=== PATIENT | female | born 1975 | race Two or more races ===

== ENCOUNTER 2017-08-16 15:50 | Observation (INO) | payer MEDICAID ==
[2017-08-16] MEDS ORDERED: TERBUTALINE SULFATE 1 MG/ML 1ML VIAL SC ONE (16:30)
[2017-08-16 16:47] LABS: Basophils # (auto) 0 uL; Basophils % (auto) 0.4 % (0.0-2.0); Eosinophils # (auto) 0.1 uL; Eosinophils % (auto) 1.2 % (0.0-7.0); Hematocrit 36.5 % (36.0-46.0); Hemoglobin 12.2 g/dL (12.2-16.2); Mean Corpuscular Hemoglobin 29.8 pg (28.0-32.0); Mean Corpuscular Hgb Conc. 33.5 g/dL (32.0-36.0); Mean Corpuscular Volume 88.8 fL (80.0-100.0); Mean Platelet Volume 8.9 fL (6.9-10.8); Monocytes # (auto) 0.6 uL; Monocytes % (auto) 5.3 % (0.0-12.0); Neutrophils # (auto) 8.4 uL; Neutrophils % (auto) 75.1 % (37.0-80.0); Platelet Count (auto) 238 10^3/uL (140-450); Red Cell Distribution Width 13.8 % (11.8-14.3); White Blood Cell 11.2 10^3/uL (4.4-10.8)
[2017-08-16 17:08] LABS: Albumin 2.7 g/dL (3.4-5.0); BUN/Creatinine Ratio 23.1; Bilirubin, Total 0.2 mg/dL (0.2-1.0); Calcium 8.5 mg/dL (8.5-10.1); Potassium 3.5 mmol/L (3.5-5.1); Total Protein 6.9 g/dL (6.4-8.2); Uric Acid 2.3 mg/dL (2.6-6.0)
[2017-08-16] MEDS ORDERED: TERBUTALINE SULFATE 1 MG/ML 1ML VIAL SC SCH (17:15)
== END 2017-08-16 20:10 | disposition home or self-care (01) | DRG 566 ==
LOC: LDRP 15:50
PROVIDERS: ADMIT Obstetrics & Gynecology; ATTEND Obstetrics & Gynecology
DX: O26.893 Other specified pregnancy related conditions, third trimester (principal); Z3A.30 30 weeks gestation of pregnancy
CPT/HCPCS: 36415; 80053; 84550; 85025; 96372; G0378; J3105

== ENCOUNTER 2017-09-10 07:30 | Observation (INO) | payer MEDICAID ==
[~2017-09-10] VITALS: Ht 152.4 cm; Wt 78.9 kg
[2017-09-10] MEDS ORDERED: PREN-96 PO (08:00)
[2017-09-10] MEDS ORDERED: TERBUTALINE SULFATE 1 MG/ML 1ML VIAL SC SCH (08:30)
[2017-09-10] MEDS ORDERED: TERBUTALINE SULFATE 1 MG/ML 1ML VIAL SC ONE (08:34)
[2017-09-10 09:32] LABS: Basophils # (auto) 0 uL; Basophils % (auto) 0.4 % (0.0-2.0); Eosinophils # (auto) 0.1 uL; Eosinophils % (auto) 1.1 % (0.0-7.0); Hematocrit 39.1 % (36.0-46.0); Hemoglobin 13.1 g/dL (12.2-16.2); Lymphocytes # (auto) 1.8 uL; Lymphocytes % (auto) 16.1 % (10.0-50.0); Mean Corpuscular Hemoglobin 29.9 pg (28.0-32.0); Mean Corpuscular Hgb Conc. 33.4 g/dL (32.0-36.0); Mean Corpuscular Volume 89.5 fL (80.0-100.0); Mean Platelet Volume 9.2 fL (6.9-10.8); Monocytes # (auto) 0.4 uL; Monocytes % (auto) 3.8 % (0.0-12.0); Neutrophils % (auto) 78.6 % (37.0-80.0); Platelet Count (auto) 208 10^3/uL (140-450); Red Cell Distribution Width 14.5 % (11.8-14.3); White Blood Cell 11.4 10^3/uL (4.4-10.8)
[2017-09-10 09:43] LABS: Albumin 2.9 g/dL (3.4-5.0); BUN/Creatinine Ratio 14.6; Potassium 3.3 mmol/L (3.5-5.1)
[2017-09-10 09:46] LABS: Bilirubin, Total 0.3 mg/dL (0.2-1.0); Total Protein 7.4 g/dL (6.4-8.2)
== END 2017-09-10 10:10 | disposition home or self-care (01) | DRG 566 ==
LOC: LDRP 07:30
PROVIDERS: ADMIT Obstetrics & Gynecology; ATTEND Obstetrics & Gynecology
DX: O26.893 Other specified pregnancy related conditions, third trimester (principal); L29.9 Pruritus, unspecified; Z3A.34 34 weeks gestation of pregnancy
CPT/HCPCS: 36415; 59025; 80053; 81002; 85025; 86592; 96372; G0378; J3105

== ENCOUNTER 2017-10-06 12:09 | Inpatient (IN) | payer MEDICAID ==
[~2017-10-06] VITALS: Ht 152.4 cm; Wt 81.6 kg
[~2017-10-06 12:09] MED LIST: PREN-96 PO
[2017-10-07] MEDS ORDERED: TERBUTALINE SULFATE 1 MG/ML 1ML VIAL SC ONE (00:42)
[2017-10-07] MEDS: LACTATED RINGER'S 1,000 ML IV SCH ×3 (00:48→16:48)
[2017-10-07] MEDS ORDERED: CLINDAMYCIN 900MG IV 0 ML IV ONE (01:18)
[2017-10-07] MEDS ORDERED: MORPHINE SULF(PF) 0.5MG/ML 10ML VIAL ONE (01:29)
[2017-10-07] MEDS ORDERED: ePHEDrine SULFATE 50 MG/ML AMP ONE (01:30)
[2017-10-07] MEDS ORDERED: CLINDAMYCIN 900MG IV 50 ML IV SCH (01:30)
[2017-10-07] MEDS ORDERED: PHENYLEPHRINE HCL 10 MG/ML VL ONE (01:30)
[2017-10-07 01:42] LABS: Basophils # (auto) 0 uL; Basophils % (auto) 0.4 % (0.0-2.0); Eosinophils # (auto) 0.1 uL; Eosinophils % (auto) 1.2 % (0.0-7.0); Hematocrit 37.4 % (36.0-46.0); Hemoglobin 12.2 g/dL (12.2-16.2); Lymphocytes # (auto) 2.3 uL; Lymphocytes % (auto) 19.3 % (10.0-50.0); Mean Corpuscular Hemoglobin 29.1 pg (28.0-32.0); Mean Corpuscular Hgb Conc. 32.7 g/dL (32.0-36.0); Mean Corpuscular Volume 88.9 fL (80.0-100.0); Monocytes # (auto) 0.8 uL; Monocytes % (auto) 6.4 % (0.0-12.0); Neutrophils # (auto) 8.8 uL; Neutrophils % (auto) 72.7 % (37.0-80.0); Nucleated Red Blood Cells % 0.1 %; Platelet Count (auto) 206 10^3/uL (140-450); Red Blood Cells 4.21 10^6/uL (4.0-5.20); Red Cell Distribution Width 14.6 % (11.8-14.3); White Blood Cell 12.1 10^3/uL (4.4-10.8)
[2017-10-07 01:49] LABS: Albumin 2.6 g/dL (3.4-5.0); Calcium 8.9 mg/dL (8.5-10.1); Potassium 3.2 mmol/L (3.5-5.1)
[2017-10-07 01:51] LABS: Urine Bacteria NONE SEEN /hpf (None Seen); Urine Blood 2+ /uL (Negative); Urine Specific Gravity 1.004 (1.001-1.035); Urine WBC <1 /hpf (0 - 5)
[2017-10-07 01:52] LABS: Bilirubin, Total 0.2 mg/dL (0.2-1.0); Total Protein 6.8 g/dL (6.4-8.2)
[2017-10-07 01:55] LABS: INR 0.86 (0.9-1.15); Partial Thromboplastin Time 28.2 sec (22.64-33.71); Prothrombin Time 9.4 sec (9.37-12.3)
[2017-10-07] MEDS ORDERED: CLINDAMYCIN 600MG IV 50 ML IV ONE (01:57)
[2017-10-07] MEDS ORDERED: MIDAZOLAM HCL 1MG/1ML-2 ML VIAL ONE (02:01)
[2017-10-07] MEDS ORDERED: OXYTOCIN 10 UNIT/ML 10ML VIAL ONE (02:23)
[2017-10-07] MEDS ORDERED: METOCLOPRAMIDE HCL 5MG/ml INJ 2ml VIAL ONE (02:26)
[2017-10-07] MEDS ORDERED: NALOXONE HCL 0.4 MG/ML VIAL IV PRN ×2 (02:30)
[2017-10-07] MEDS ORDERED: HYDROmorphone HCL 2 MG/ML VL IV PRN (02:30)
[2017-10-07] MEDS ORDERED: ONDANSETRON HCL 4 MG/2 ML VIAL IV PRN ×2 (02:30→02:45)
[2017-10-07] MEDS ORDERED: diphenhdrAMINE HCL 50 MG/1 ML VL IV PRN (02:30)
[2017-10-07] MEDS ORDERED: METOCLOPRAMIDE HCL 5MG/ml INJ 2ml VIAL IV ONE (02:30)
[2017-10-07] MEDS ORDERED: ONDANSETRON HCL 4 MG/2 ML VIAL IV ONE (02:30)
[2017-10-07] MEDS ORDERED: LACT. RINGERS/OXYTOCIN 20UNITS 1,000 ML IV SCH (02:45)
[2017-10-07] MEDS ORDERED: MORPHINE SULF INJ 2 MG/ML SYRINGE 1ML IV PRN (02:45)
[2017-10-07] MEDS ORDERED: OXYTOCIN 10UNIT/ML 1ML VIAL ONE (03:07)
[2017-10-07] MEDS ORDERED: ONDANSETRON HCL 4 MG/2 ML VIAL ONE (03:23)
[2017-10-07 04:50] VITALS: BP 100/56
[2017-10-07] MEDS ORDERED: LACT. RINGERS/OXYTOCIN 20UNITS 1,000 ML IV ONE (06:03)
[2017-10-07] MEDS: KETOROLAC TROMETH 30 MG/ML 1ML VIAL IV PRN ×2 (07:20→20:00)
[2017-10-07 08:00] VITALS: BP 103/55
[2017-10-07] MEDS: CLINDAMYCIN 600MG IV 50 ML IV SCH ×2 (10:00→17:50)
[2017-10-07] MEDS ORDERED: POTASSIUM CHL 20 Meq TABLET PO ONE ×2 (11:14→20:00)
[2017-10-07 12:05] VITALS: BP 93/50
[2017-10-07 16:13] VITALS: BP 91/50
[2017-10-07 18:07] LABS: Basophils # (auto) 0 uL; Basophils % (auto) 0.2 % (0.0-2.0); Eosinophils # (auto) 0 uL; Hematocrit 35.7 % (36.0-46.0); Hemoglobin 11.6 g/dL (12.2-16.2); Lymphocytes % (auto) 5.4 % (10.0-50.0); Mean Corpuscular Hgb Conc. 32.5 g/dL (32.0-36.0); Mean Corpuscular Volume 89.1 fL (80.0-100.0); Monocytes % (auto) 5.1 % (0.0-12.0); Neutrophils # (auto) 16.8 uL; Neutrophils % (auto) 89.3 % (37.0-80.0); Platelet Count (auto) 207 10^3/uL (140-450); Red Blood Cells 4.01 10^6/uL (4.0-5.20); Red Cell Distribution Width 14.9 % (11.8-14.3); White Blood Cell 18.8 10^3/uL (4.4-10.8)
[2017-10-07 20:18] VITALS: BP 96/52
[2017-10-07] MEDS ORDERED: BISACODYL 10 MG RECT SUPP PR PRN (21:45)
[2017-10-07] MEDS ORDERED: HYDROcodone-ACET 5/325MG TAB PO PRN (21:45)
[2017-10-07] MEDS: DOCUSATE SOD 100 MG CAP PO SCH (21:49)
[2017-10-07] MEDS: SIMETHICONE 80 MG CHEWABLE TABLET PO SCH (21:49)
[2017-10-07] MEDS: HYDROcodone-ACET 5/325MG TAB PO PRN (21:49)
[2017-10-07 23:20] VITALS: BP 90/50
[2017-10-08] MEDS: LACTATED RINGER'S 1,000 ML IV SCH ×3 (00:48→16:48)
[2017-10-08] MEDS: CLINDAMYCIN 600MG IV 50 ML IV SCH ×3 (02:25→22:00)
[2017-10-08] MEDS: HYDROcodone-ACET 5/325MG TAB PO PRN ×3 (02:35→11:10)
[2017-10-08 04:00] VITALS: BP 98/62
[2017-10-08] MEDS: SIMETHICONE 80 MG CHEWABLE TABLET PO SCH ×4 (06:03→22:00)
[2017-10-08 06:43] LABS: Basophils # (auto) 0 uL; Basophils % (auto) 0.3 % (0.0-2.0); Eosinophils # (auto) 0.1 uL; Eosinophils % (auto) 0.3 % (0.0-7.0); Hematocrit 34.3 % (36.0-46.0); Hemoglobin 11.6 g/dL (12.2-16.2); Lymphocytes # (auto) 1.4 uL; Mean Corpuscular Hemoglobin 30.2 pg (28.0-32.0); Mean Corpuscular Volume 88.8 fL (80.0-100.0); Monocytes # (auto) 0.9 uL; Monocytes % (auto) 5.4 % (0.0-12.0); Neutrophils # (auto) 14.5 uL; Platelet Count (auto) 206 10^3/uL (140-450); Red Blood Cells 3.86 10^6/uL (4.0-5.20); Red Cell Distribution Width 15.2 % (11.8-14.3); White Blood Cell 16.8 10^3/uL (4.4-10.8)
[2017-10-08] MEDS: IBUPROFEN 800 MG TAB PO PRN ×3 (07:45→23:15)
[2017-10-08 08:13] VITALS: BP 87/52
[2017-10-08] MEDS: DOCUSATE SOD 100 MG CAP PO SCH ×2 (10:00→22:00)
[2017-10-08] MEDS: DOCUSATE CALCIUM 240 MG CAP PO SCH (10:00)
[2017-10-08 12:10] VITALS: BP 101/68
[2017-10-08 15:42] VITALS: BP 109/65
[2017-10-08 20:00] VITALS: BP 109/64
[2017-10-08 23:24] VITALS: BP 103/64
[2017-10-09] VITALS (7 sets, daily range): BP systolic 97–116; BP diastolic 58–72
[2017-10-09] MEDS: LACTATED RINGER'S 1,000 ML IV SCH ×3 (00:48→16:48)
[2017-10-09] MEDS: HYDROcodone-ACET 5/325MG TAB PO PRN ×4 (03:10→23:05)
[2017-10-09] MEDS: CLINDAMYCIN 600MG IV 50 ML IV SCH ×2 (06:07→14:00)
[2017-10-09] MEDS: SIMETHICONE 80 MG CHEWABLE TABLET PO SCH ×4 (06:07→22:24)
[2017-10-09] MEDS: DOCUSATE SOD 100 MG CAP PO SCH ×2 (10:20→22:24)
[2017-10-09] MEDS: DOCUSATE CALCIUM 240 MG CAP PO SCH (10:20)
[2017-10-09] MEDS: IBUPROFEN 800 MG TAB PO PRN (11:44)
[2017-10-10 04:00] VITALS: BP 97/51
[2017-10-10] MEDS: HYDROcodone-ACET 5/325MG TAB PO PRN (04:50)
[2017-10-10] MEDS: SIMETHICONE 80 MG CHEWABLE TABLET PO SCH (05:45)
[2017-10-10 08:13] VITALS: BP 93/60
[2017-10-10] MEDS: LACTATED RINGER'S 1,000 ML IV SCH (08:48)
[2017-10-10] MEDS: DOCUSATE CALCIUM 240 MG CAP PO SCH (09:10)
[2017-10-10] MEDS: DOCUSATE SOD 100 MG CAP PO SCH (09:10)
== END 2017-10-10 11:10 | disposition home or self-care (01) | DRG 540 ==
LOC: LDRP 12:09 → OBSVTOIN 12:10 → LDRP 10-07 11:32
PROVIDERS: ADMIT Obstetrics & Gynecology; ATTEND Obstetrics & Gynecology
PROC: 10D00Z1 Extraction of Products of Conception, Low, Open Approach (ICD-10-PCS; 2017-10-07)
PROC: 0UB70ZZ Excision of Bilateral Fallopian Tubes, Open Approach (ICD-10-PCS; principal; 2017-10-07 01:35)
DX: O34.219 Maternal care for unspecified type scar from previous cesarean delivery (principal); N73.6 Female pelvic peritoneal adhesions (postinfective); O99.89 Other specified diseases and conditions complicating pregnancy, childbirth and the puerperium; O75.89 Other specified complications of labor and delivery; Z37.0 Single live birth; Z30.2 Encounter for sterilization; Z3A.38 38 weeks gestation of pregnancy
CPT/HCPCS: 36415; 80053; 81001; 84132; 85025; 85610; 85730; 86850; 86900; 86901; G0378; J1885; J2250; J2405; J2590; J3490

== ENCOUNTER → 2022-10-21 | Outpatient (CLI) | payer MEDICAID ==
[~2022-10-21] VITALS: Ht 154.9 cm; Wt 80.7 kg
== END | disposition home or self-care (01) ==
LOC: Rad HDHVI 09:22
PROVIDERS: ATTEND Internal Medicine Cardiovascular Disease
DX: R07.89 Other chest pain (principal); R00.2 Palpitations; R06.02 Shortness of breath; E66.9 Obesity, unspecified
CPT/HCPCS: 78452; 93017; 96374; A9500

== ENCOUNTER 2024-01-01 11:17 | Emergency (ER) | payer MEDICAID ==
[~2024-01-01] VITALS: Ht 152.4 cm; Wt 78.1 kg
[2024-01-01 11:38] LABS: Basophils # (auto) 0.1 10 ^3/uL (0-0.2); Basophils % (auto) 0.7 % (0.0-2.0); Eosinophils # (auto) 0.1 10 ^3/uL (0-0.8); Eosinophils % (auto) 1.4 % (0.0-7.0); Hematocrit 42.7 % (36.0-46.0); Lymphocytes # (auto) 1.9 10 ^3/uL (0.4-5.4); Lymphocytes % (auto) 25.2 % (10.0-50.0); Mean Corpuscular Hemoglobin 29.1 pg (28.0-32.0); Mean Corpuscular Hgb Conc. 32.8 g/dL (32.0-36.0); Mean Corpuscular Volume 88.7 fL (80.0-100.0); Monocytes # (auto) 0.5 10 ^3/uL (0-1.3); Monocytes % (auto) 6.5 % (0.0-12.0); Neutrophils % (auto) 66.2 % (37.0-80.0); Nucleated Red Blood Cells % 0.1 %; Red Blood Cells 4.81 10^6/uL (4.0-5.20); Red Cell Distribution Width 13.9 % (11.8-14.3); White Blood Cell 7.6 10^3/uL (4.4-10.8)
[2024-01-01 11:54] LABS: Alanine Aminotransferase 18 U/L (7-40); Albumin 4.5 g/dL (3.2-4.8); Alkaline Phosphatase 79 U/L (46-116); Anion Gap 2 (5-15); Aspartate Aminotransferase 18 U/L (13-40); BUN/Creatinine Ratio 14.1 (10.0-20.0); Bilirubin, Total 0.5 mg/dL (0.2-1.0); Blood Urea Nitrogen 9 mg/dL (9-23); Calcium 9.8 mg/dL (8.7-10.4); Carbon Dioxide 28 mmol/L (20-30); Chloride 109 mmol/L (98-107); Glucose 89 mg/dL (74-106); Potassium 4.5 mmol/L (3.5-5.1); Sodium 139 mmol/L (136-145); Total Protein 7.2 g/dL (5.7-8.2); Urine Bacteria None Seen /hpf (None Seen)
[2024-01-01 12:02] LABS: Urine Blood Negative /uL (Negative); Urine Clarity Clear (Clear); Urine Color Colorless (Yellow); Urine Protein, UAD Negative (Negative); Urine Specific Gravity 1.004 (1.001-1.035); Urine Urobilinogen Normal (Negative); Urine WBC <1 /hpf (0 - 5)
[2024-01-01 12:07] LABS: INR 0.97 (0.9-1.15); Partial Thromboplastin Time 30.6 SEC (24.5-34.5); Prothrombin Time 10.2 sec (9.3-11.8)
[2024-01-01] MEDS ORDERED: IOHEXOL 350 MG/ML 100ML IJ ONE (13:19)
[2024-01-01 14:58] VITALS: BP 109/64; PULSE 64; RESP 18; TEMP 97.4; O2SAT 100
== END 2024-01-01 14:44 | disposition home or self-care (01) ==
LOC: ER 11:17
DX: M94.0 Chondrocostal junction syndrome [Tietze] (principal); R10.2 Pelvic and perineal pain; F41.9 Anxiety disorder, unspecified; R07.89 Other chest pain; Z98.890 Other specified postprocedural states; Z88.0 Allergy status to penicillin; Z79.899 Other long term (current) drug therapy
CPT/HCPCS: 36415; 71045; 71275; 80053; 81001; 84484; 84702; 85025; 85610; 85730; 93005; 99285; Q9967